=== PATIENT | male | born 1975 | race Caucasian/White ===

== ENCOUNTER 2018-11-05 09:23 | Emergency (ER) | payer OTHER ==
[2018-11-05] MEDS ORDERED: LIDOCAINE 4%/MENTHOL 1% PATCH TD ONE (10:55)
[2018-11-05] MEDS ORDERED: CYCLOBENZAPRINE 10 MG TAB PO ONE (11:30)
[2018-11-05] MEDS ORDERED: HYDROCODONE/APAP 5/325 TAB PO ONE (11:30)
[2018-11-05] MEDS ORDERED: KETOROLAC 30 MG/1 ML SDV IM ONE (11:30)
--- NOTE | 2018-11-05 13:39 | EDPHY ---
General Time Seen by Provider: 11/05/18 11:55 Narrative: CLINICAL IMPRESSION: Lumbar back pain ASSESSMENT/PLAN: Patient is a 43 year old male with no significant medical history who presents with a complaint of low back pain. Patient is afebrile and not toxic appearing, he is in mild distress on arrival. HSNE intact with no significant red flags. Lumbar spine xray today with mild degenerative changes L2/L3. UA negative for infection. Physical examination today is consistent with lumbar back pain with no radiculopathy. He had no saddle paresthesias, lower extremity numbness, tingling , major motor weakness, urinary retention or bowel/bladder incontinence. No indication for emergent MRI. There were no clinical findings to suggest vertebral osteomyelitis, acute fracture, cauda equina syndrome, epidural abscess /hematoma, epidural compression syndrome, renal colic, AAA, dissection, pyelonephritis, meningitis, malignancy, transverse myelitis, herpes zoster, or additional emergent intraabdominal infectious/obstructive process. Patient was given toradol, flexeril, norco and a lidoderm patch was placed while in the ED with improvement of his pain and mobility. He does not have a PCP, I have provided a referral and he understands importance of follow-up as he may need additional imaging, work up or PT as an outpatient. Strict return precautions discussed- he will return for increased or unmanageable pain, new injury, new midline back pain, numbness, tingling, weakness of legs, loss of bowel or bladder control, saddle paresthesia, urinary retention, loss of bowel or bladder control, difficulty walking or for any other new, worsening or worrisome symptoms. Patient verbalizes understanding and he is in agreement with plan. DIFFERENTIAL DX: Trauma, musculoskeletal strain, pyelo, epidural compression syndrome, cauda equina CHIEF COMPLAINT: Lumbar Back Pain HPI: Patient is a 43 year old with no significant medical history present with lumbar back pain. Patient reports on Sunday he received a flu shot in the afternoon. He was home later when he bent down to tie his shoes and felt "fatigue" in his generalized lower back. The pain has continued to worsen, bilateral. No history of trauma or similar episodes. He denies fever, numbness or tingling of extremities, urinary retention, bowel/bladder incontinence or extremity weakness. There is no radiation of pain. Worsens with twisting and bending.He has had no testicular pain or swelling, no change in bowel habits and has had no urinary symptoms. PAST MEDICAL HISTORY: Denies Pertinent Past Surgical History: Denies Social History: Occasional ETOH, no illicit drugs or history of IV drug use, denies smoking ROS: A full 10 point review of systems was negative except for those mentioned in HPI. PHYSICAL EXAM: General Appearance: Well developed, uncomfortable appearing however not toxic appearing. HEENT: TMs are clear bilaterally no perforation or FB, no injection, no evidence of serous or mucopurulent otitis. Oropharynx clear is no erythema or exudates, no tonsillar hypertrophy or asymmetry. Dentition without abnormality. Eyes: PERRLA, no acute vision change, nystagmus, swelling, discharge, pain or photosensitivity. Conjunctiva pink, no pallor or injection. Neck: Supple, nontender, no lymphadenopathy, no midline pain, FROM, no meningismus. Respiratory: There are no retractions, lungs are clear to auscultation. Cardiac: Regular rate and rhythm, no murmurs or gallops. Gastrointestinal: Abdomen is soft, nontender, bowel sounds normal, no masses/ hernia, no rigidity, guarding or focal peritoneal findings. Back: No step-off, palpable bony abnormality, edema, erythema or ecchymosis of the cervical, thoracic or lumbar spines. TTP: Generalized lumbar spine and paraspinal muscles. Limited ROM of lumbar spine due to pain. 5/5 and equal strength of the UEs and LEs bilaterally including shoulder shrug. Pulses: 2+ and equal radial, DP and PT pulses bilaterally. Sensation intact and symmetric to light touch from face, UEs and LEs bilaterally. Straight leg raise negative bilaterally. NON-traumatic Back Pain Pathway Low/medium concern for Acute Spinal Emergency (ASE) High Sensitivity Neuro Exam (HSNE) Lumbar pain L1: inner thigh sensation- no deficit L2: ADduct thigh (cross legs) - no deficit L3: Extend knee- no deficit L4: Ankle dorsiflexion- no deficit L5: Great toe extension- no deficit S1: Flex knee- no deficit S3-4: bladder/bowel function no dysfunction HSNE No deficit Red flags: MINOR (1 pt each) Alcohol abuse 0 DM 0 Renal failure 0 Night pain 0 3rd visit in <= 20 days 0 MAJOR (3 pts each) IVDA 0 Fever without focus 0 Recent/current systemic infection 0 Immunosuppression (physician discretion) 0 Recent spinal fracture/spinal procedure 0 New bladder/bowel incontinence or retention 0 Total Red Flag score 0 Skin: Warm, dry, no rashes, no nodules on palpation. MEDICAL DECISION MAKING: Patient was seen independently. Secondary supervising physician at time of evaluation was Dr. Louis, she did not evaluate this patient. Diagnosis: Lumbar back pain. New, requires workup Summary: See Assessment and Plan for summary of ED visit. Clinical lab tests: ordered / reviewed. Independent visualization of images, tracing, or specimens: Yes. Decision to obtain medical records or history from someone other than the patient: No. Review / Summarize previous medical records: None available Discussed patient with another provider: Yes, Dr. Louis Patient Progress: Improved, discharge. - Objective Vital Signs: Initial Vital Signs Temperature (C) 36.7 C 11/05/18 09:28 Heart Rate 92 11/05/18 09:28 Respiratory Rate 18 11/05/18 09:28 Blood Pressure 122/85 H 11/05/18 09:28 O2 Sat (%) 95 11/05/18 09:28 O2 Delivery Mode Room Air Allergies/Adverse Reactions: No Known Allergies Allergy (Unverified 11/05/18 09:27) Home Medications: Medication Instructions Recorded Cyclobenzaprine [Cyclobenzaprine 5 mg PO Q8HRS PRN #10 tab 11/05/18 HCl] Hydrocodone/APAP 5/325 [[place] 1 each PO Q4H PRN #8 tab 11/05/18 5/325 (*)] Medications Given: Discontinued Medications Hydrocodone Bitart/Acetaminophen ([place] 5/325) 2 tab PO EDNOW ONE Stop: 11/05/18 11:31 Last Admin: 11/05/18 11:37 Dose: 1 tab Cyclobenzaprine HCl (Flexeril) 10 mg PO EDNOW ONE Stop: 11/05/18 11:31 Last Admin: 11/05/18 11:37 Dose: 10 mg Ketorolac Tromethamine (Toradol) 30 mg IM EDNOW ONE Stop: 11/05/18 11:31 Last Admin: 11/05/18 11:37 Dose: 30 mg Miscellaneous Medication (Icy Hot Lidocaine/Menthol 4%/1% Patch) 1 patch TD EDNOW ONE Stop: 11/05/18 10:56 Last Admin: 11/05/18 10:59 Dose: 1 patch Departure - Departure Disposition: Home, Routine, Self-Care Clinical Impression: Lumbar back pain Condition: Good Instructions: Acute Low Back Pain (ED) Additional Instructions: DISCHARGE INSTRUCTIONS FROM YOUR DOCTOR Thank you for visiting our emergency department today. Please keep in mind that discharge from the emergency department does not mean that there is nothing wrong - it simply means that we have not identified an emergency condition that requires further evaluation or treatment in the hospital. You should always plan to follow up with primary care for re-evaluation of your condition in the next 2-3 days. If you have been referred to a specialist, please call as soon as possible (today or tomorrow) to schedule your follow up appointment at the appropriate time. Most back pain improves quickly with rest and anti-inflammatory medicines. The majority of back pain will improve regardless of treatment within 4-6 weeks. Regardless, I recommend you follow up with primary care for recheck as soon as possible. Additional evaluation as an outpatient may be needed, and further therapeutic modalities such as chiropractic or PT may be helpful. Rest. Avoid lifting greater than 10-15 pounds. Avoid twisting or prolonged sitting. Movement and gentle walking is good for your back. Try to walk for 15-10 minutes on an even surface 3 or 4 times a day as tolerated and increase gentle exercise as your back improves. Apply ice to your low back during acute pain phase, later a heating pad set to a low setting or hot tub may be helpful to help relax muscles. Ibuprofen 600 mg every 6-8 hours with food. Stop for stomach upset. Do not exceed 2400 mg in 24 hours. Avoid these medications for the next 8 hours as you received Toradol today in the ED. Flexeril (muscle relaxant) as prescribed as needed for muscle tightness and/or spasm. Salonpas lidocaine pain patch, apply as directed. [place] as prescribed as needed for severe pain. Caution - this may cause dizziness and/or drowsiness. Do not combine with alcohol or tylenol. Do not take if you will be driving or operating heavy machinery. Caution- this can be addictive. Caution - this can cause constipation. Schedule a follow-up appointment with your primary care physician in the next 2- 3 days for re-evaluation. You may require further treatment, physical therapy and/or further future testing. Return for increased or unmanageable pain, new injury, new midline back pain, numbness, tingling, weakness of your legs, loss of bowel or bladder control, inability to urinate, burning or pain with urination, blood in the urine, fever , chills, abdominal pain, vomiting, difficulty walking, dizziness, fainting, chest pain, shortness of breath, neck pain, neck stiffness, other site of back pain, calf pain, leg redness or swelling, or for any other new, worsening or worrisome symptoms. People present with illnesses and injuries in different ways, and it is always possible that we have missed something. You may always return for re-evaluation if symptoms worsen or if they are not improving or if you develop new/different symptoms. Again, thank you for choosing our emergency department. We hope that you feel better. Referrals: Diana Mclain MD [Medical Doctor] - As per Instructions (Schedule an appointment to establish care) Prescriptions: Cyclobenzaprine [Cyclobenzaprine HCl] 5 mg PO Q8HRS PRN #10 tab PRN Reason: Spasms Hydrocodone/APAP 5/325 [[place] 5/325 (*)] 1 each PO Q4H PRN #8 tab PRN Reason: Pain, Severe
[2018-11-05 13:59] VITALS: BP 125/74
[2018-11-05] MEDS ORDERED: PATCH REMOVAL 1 EA PATCH TD SCH (21:00)
== END 2018-11-05 13:59 | disposition home or self-care (01) ==
DX: M54.5 Low back pain (principal)
CPT/HCPCS: J1885